=== PATIENT | female | born 1990 | race Asian ===

== ENCOUNTER 2017-08-26 18:46 | Emergency (ER) | END 2017-08-26 23:11 | disposition home or self-care (01) ==

== ENCOUNTER 2018-01-27 20:24 | Outpatient (CLI) | END 2018-01-28 01:37 | disposition home or self-care (01) ==

== ENCOUNTER 2018-01-29 08:54 | Outpatient (CLI) | END 2018-01-29 10:27 | disposition home or self-care (01) ==

== ENCOUNTER 2018-02-17 02:45 | Inpatient (IN) | END 2018-02-19 13:45 | disposition home or self-care (01) | DRG 775 ==